=== PATIENT | male | born 1985 | race Caucasian/White ===

== ENCOUNTER 2021-10-16 07:43 | Emergency (ER) | payer SELFPAY | END 2021-10-16 09:35 | disposition home or self-care (01) | LOC: ERS 07:43 | DX: S65.50 Unspecified injury of blood vessel of other and unspecified finger (principal); S67.22XA Crushing injury of left hand, initial encounter; S67.191A Crushing injury of left index finger, initial encounter; F17.210 Nicotine dependence, cigarettes, uncomplicated; W20.8XXA Other cause of strike by thrown, projected or falling object, initial encounter ==